=== PATIENT | male | born 2000 | race Caucasian/White ===

== ENCOUNTER 2021-01-23 11:05 | Emergency (ER) | payer OTHER ==
[2021-01-23] MEDS ORDERED: AMOXICILLIN875 MG PO (12:56)
[2021-01-23] MEDS ORDERED: CHLORHEXIDINE118 M1 SSP (12:56)
== END 2021-01-23 13:23 | disposition home or self-care (01) ==
LOC: FER 11:05
DX: S01.511A Laceration without foreign body of lip, initial encounter (principal); W55.22XA Struck by cow, initial encounter; Y92.009 Unspecified place in unspecified non-institutional (private) residence as the place of occurrence of the external cause
CPT/HCPCS: 70450; 70486